=== PATIENT | female | born 1950 | race Caucasian/White ===

== ENCOUNTER 2018-05-11 08:12 | Day surgery (SDC) | payer MEDICARE ==
--- NOTE | 2018-04-30 07:36 | HP ---
PREOPERATIVE HISTORY AND PHYSICAL: DATE OF SURGERY/ADMISSION: 05/11/18 DATE OF OFFICE VISIT/ENCOUNTER: 04/29/18 ATTENDING PHYSICIAN: Yoko Slaughter MD * (DICTATED BY KELSEY OROPEZA) PROCEDURE: Right long finger trigger finger release. CHIEF COMPLAINT: Right longer finger triggering. HISTORY OF PRESENT ILLNESS: This is a 68-year-old female who has had triggering , catching, and locking in the right long finger since the spring. She did receive a cortisone injection back in July of 2017 and that was quite helpful. Unfortunately, the symptoms have returned over the past month. She is now interested in surgical intervention for this problem. PAST MEDICAL HISTORY: 1. Sleep apnea. She does not wear a CPAP. 2. Grave's disease with resulting hypothyroidism. 3. Hypercholesterolemia. 4. Depression/anxiety. 5. History of migraine headaches. PAST SURGICAL HISTORY: 1. Colectomy. 2. x2. 3. Exploratory laparotomy. CURRENT MEDICATIONS: 1. Fluoxetine HCl 20 mg daily. 2. Fluticasone propionate 50 mcg/ACT 2 sprays each nostril once daily. 3. Hydrochlorothiazide 25 mg one half tablet daily. 4. Ibuprofen 200 mg p.r.n. 5. Levothyroxine sodium 88 mcg daily. 6. Multivitamin daily. 7. Potassium chloride ER 10 mEq one capsule daily. 8. Pravastatin sodium 40 mg daily. 9. Rizatriptan benzoate 10 mg 1 tablet daily for migraine p.r.n. ALLERGIES: SULFA ANTIBIOTICS causes mouth sores. FAMILY MEDICAL HISTORY: Heart disease, hypertension, stroke, cancer. 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 She is a former smoker. She quit approximately 29 years ago. Prior to that, she smoked a pack per day for 20 years. She does currently smoke marijuana on occasion and drinks alcohol on occasion. REVIEW OF SYSTEMS: Negative for general, cephalic, cardiovascular, respiratory , GI, , other musculoskeletal, integumentary, endocrine, neurologic, and hematologic symptoms. Infectious Disease is negative for MRSA, hepatitis C, HIV. PHYSICAL EXAMINATION GENERAL: Well-developed, well-nourished 68-year-old female, in no acute distress. VITAL SIGNS: Height 5 feet 1-1/4 inches, weight 134 pounds. Blood pressure 118 /66, pulse rate 78. HEENT: Normocephalic, atraumatic. Pupils are equal, round, and reactive to light and accommodation. Extraocular movements are intact. Throat is clear. NECK: Supple. No palpable lymph nodes. PULMONARY: Lungs are clear to auscultation bilaterally. No wheezes, rales, or rhonchi. CARDIOVASCULAR: Regular rate and rhythm. S1, S2. No murmurs, rubs, or gallops. No edema. ABDOMEN: Positive bowel sounds. Soft, nontender. MUSCULOSKELETAL: On exam of her right long finger, she has mild swelling present along the length of the finger. There is tenderness to palpation at the A1 beni and active triggering with range of motion. Neurovascular function is intact. NEUROLOGICAL: Alert and oriented x3. Cranial nerves II through XII are intact. Sensation is intact to light touch. IMPRESSION: Right long finger trigger finger. PLAN: The patient is scheduled to undergo a right long finger trigger finger release with Dr. Slaughter on 05/11/18. She will return to the office 10 days postop for followup and suture removal. A prescription for Tylenol #3 was e- scribed to the patient's pharmacy for postoperative pain management. KELSEY OROPEZA [id number]/PETERSON #: [id number] WARREN
[~2018-05-11 08:12] MED LIST: Buffered Lidocaine 1% SYRIN* 1 ML/SYRINGE INTRADERM ONE; Dexamethasone TAB* 4 MG PO ONE; DiMENhydriNATE IV* 50 MG/ML VIAL IV PUSH PRN; Famotidine IV* 10 MG/ML 2 ML (20 mg) IV ONE; Lactated Ringers 1000 ML Bag* 1,000 ML IV SCH; Naloxone* 0.4 MG/ML 1 ML VIAL IV PRN; Ondansetron TAB* 4 MG PO ONE; PROCHLORPERAZINE INJ 5 MG/ML 2 ML VIAL IV PRN; fentaNYL* 50 MCG/ML 2 ML VIAL (100 MCG VIAL) IV PRN; oxyCODONE/Acetamin 5/325 MG* TAB PO PRN
[2018-05-11] MEDS ORDERED: Lidocaine 1% INJ* 10 MG/ML 30 ML SDV ONE (08:42)
[2018-05-11] MEDS ORDERED: Famotidine IV* 10 MG/ML 2 ML (20 mg) ONE (09:15)
[2018-05-11] MEDS ORDERED: Ondansetron ODT TAB* 4 MG ONE (09:15)
[2018-05-11] MEDS ORDERED: Dexamethasone TAB* 4 MG ONE (09:15)
[2018-05-11] MEDS ORDERED: Midazolam* 1 MG/ML 5 ML VIAL (5 MG) ONE (10:00)
[2018-05-11] MEDS ORDERED: fentaNYL* 50 MCG/ML 2 ML VIAL (100 MCG VIAL) ONE (10:00)
[2018-05-11] MEDS ORDERED: Propofol* 10 MG/ML 20 ML BTL ONE (10:40)
[2018-05-11] MEDS ORDERED: Ketorolac INJ* 30 MG/ML 1 ML VIAL ONE (10:40)
[2018-05-11 11:26] VITALS: BP 129/71
--- NOTE | 2018-05-11 20:05 | OP ---
DATE OF OPERATION: 05/11/18 LOCATED WITHIN [facility] DATE OF : 52 SURGEON: Dr. Slaughter. MANAGER OF SOFTWARE DEVELOPMENT: KELSEY Donnelly. ANESTHESIA: Local MAC. PRE-OP DIAGNOSIS: Right long finger trigger finger. POST-OP DIAGNOSIS: Right long finger trigger finger. OPERATIVE PROCEDURE: Right long finger trigger release. ESTIMATED BLOOD LOSS: Zero. INDICATIONS: Amena is a 68-year-old female with triggering and locking of her right middle finger. She presents for trigger release. DESCRIPTION OF PROCEDURE: The patient was brought to the operating room, was given a sedation anesthetic and a local infiltration of 10 cc of 1% plain lidocaine in the palm of the right hand overlying the right middle finger A1 beni. Skin of her right hand and forearm was prepped and draped in the usual sterile fashion. The hand and forearm were exsanguinated and the tourniquet elevated to 250 mmHg. A transverse incision was made over the A1 beni of the right middle finger. We dissected through the subcutaneous tissue down to the A1 beni. The digital neurovascular bundles were retracted by the manager surgical, Akilah Christy. The beni was then incised longitudinally, completely releasing the flexor tendons which were in very good condition. The wound was irrigated and skin edges reapproximated with 4-0 nylon suture. The wound was dressed with Xeroform, 4x4, Webril, and an Zaheer wrap. The patient tolerated the procedure well, and was brought to the recovery room in good condition. [id number]/CPS #: [id number] MTDD
== END 2018-05-11 11:22 | disposition home or self-care (01) ==
LOC: OREAST 08:12
PROVIDERS: ATTEND Orthopaedic Surgery
DX: M65.331 Trigger finger, right middle finger (principal); G47.33 Obstructive sleep apnea (adult) (pediatric); E03.9 Hypothyroidism, unspecified; E78.00 Pure hypercholesterolemia, unspecified; F41.8 Other specified anxiety disorders; Z87.891 Personal history of nicotine dependence; E78.5 Hyperlipidemia, unspecified
CPT/HCPCS: A9270-GY; J1885; J2250; J2704; J3010; J8540